=== PATIENT | female | born 1975 | race Caucasian/White ===

== ENCOUNTER 2017-10-31 18:58 | Emergency (ER) | payer MEDICAID ==
[~2017-10-31] VITALS: Ht 152.4 cm; Wt 98.9 kg
[~2017-10-31 18:58] MED LIST: ASPI-1063 PO; CARV25TA55 PO; CEL250 PO; CLOP75TA2 PO; INSU100V11 SQ; INSU10VI4 SUBCUT; LIP20 PO; LISI-209 PO; MYCO500T PO; PRED5TAB PO
[2017-10-31 19:11] VITALS: BP_SYST 151
--- NOTE | 2017-10-31 21:02 | NUR ---
Placed in room CH2. Side rails up. Report given to VIANEY Reyes.
--- NOTE | 2017-10-31 21:10 | NUR ---
Patient to ER via triage, ambulating with slow, steady gait in no acute distress. Patient c/o right ear pain, patient also reports a bump/abscess in the right ear. Patient reports symptoms have been ongoing since 10/28/17 at 0600. Patient able to ambulate to Hallway bed, to await MD evaluation-will continue to observe and assess.
--- NOTE | 2017-10-31 21:20 | NUR ---
ER at bedside examining patient.
--- NOTE | 2017-10-31 21:45 | NUR ---
Patient given written and verbal discharge instructions and verbalizes understanding. ER MD discussed with patient the results and treatment provided. Patient in stable condition. ID arm band removed. Rx of Ciprofloxacin, Amoxicillin given. Patient educated on pain management and to follow up with PMD. Pain Scale 2. Opportunity for questions provided and answered. Patient left ER ambulating with slow, steady gait in no acute distress. Patient was given aftercare instructions by Hior Marques RN
== END 2017-10-31 21:45 | disposition home or self-care (01) ==
LOC: SED 18:58
DX: H60.91 Unspecified otitis externa, right ear (principal); I10 Essential (primary) hypertension; Z79.899 Other long term (current) drug therapy
CPT/HCPCS: 99283

== ENCOUNTER 2018-11-23 04:33 | Emergency (ER) | payer MEDICAID ==
[~2018-11-23] VITALS: Ht 152.4 cm; Wt 93.0 kg
[~2018-11-23 04:33] MED LIST changes: -ASPI-1063 PO; +ASPI-1153 PO
[2018-11-23 04:45] VITALS: BP_SYST 149
[2018-11-23] MEDS ORDERED: LIDOCAINE VISCOUS 2%, 15 ML UDC MM ONE (05:15)
[2018-11-23] MEDS ORDERED: AMOXICILLIN 500 MG CAPSULE PO ONE (05:15)
[2018-11-23] MEDS ORDERED: LIDOCAINE VISCOUS 2%, 15 ML UDC ONE ×2 (05:31→05:35)
[2018-11-23 05:34] VITALS: BP_SYST 149
== END 2018-11-23 05:34 | disposition home or self-care (01) ==
LOC: SED 04:33
DX: J02.8 Acute pharyngitis due to other specified organisms (principal); B96.89 Other specified bacterial agents as the cause of diseases classified elsewhere; I10 Essential (primary) hypertension; Z79.82 Long term (current) use of aspirin; Z79.899 Other long term (current) drug therapy
CPT/HCPCS: 99283; J2001

== ENCOUNTER 2019-12-06 01:30 | Emergency (ER) | payer MEDICAID ==
[~2019-12-06] VITALS: Ht 152.4 cm; Wt 99.3 kg
[2019-12-06 02:20] VITALS: BP_SYST 149
--- NOTE | 2019-12-06 04:57 | NUR ---
Pt ambulatory to bed 7 for evaluation
--- NOTE | 2019-12-06 05:00 | NUR ---
Dr. Hameed bedside for Pt eval
--- NOTE | 2019-12-06 05:15 | NUR ---
Pt BIB family to ED C/O left back pain x 2 days. Denies injury/trauma.No pain meds taken. No other complaints and or injuries noted VSS no s/s of acute distress Resting on gurney rails up
[2019-12-06] MEDS ORDERED: KETOROLAC TROMETHAMINE 30 MG VIAL IM ONE (05:30)
--- NOTE | 2019-12-06 05:47 | NUR ---
Pt taken to Radiology in stable condition
[2019-12-06 06:50] LABS: BILIRUBIN,URINE NEGATIVE (NEGATIVE); CLARITY/URINE CLEAR (CLEAR); COLOR,URINE YELLOW (YELLOW); GLUCOSE,URINE NEGATIVE (NEGATIVE); KETONES,URINE NEGATIVE (NEGATIVE); LEUKOCYTE ESTERASE ,URINE NEGATIVE (NEGATIVE); NITRITE, URINE NEGATIVE (NEGATIVE); PH,URINE 5.5 (5.0-8.0); PROTEIN URINE NEGATIVE (NEGATIVE); UROBILINOGEN,URINE 0.2 (0.2-1.0)
[2019-12-06 06:55] LABS: HCG,QUAL RESULT NEGATIVE (NEGATIVE)
[2019-12-06 06:56] LABS: BLOOD, URINE TRACE (NEGATIVE)
[2019-12-06 06:59] LABS: BACTERIA,URINE FEW /HPF (None Seen); RBC,URINE 0-3 /HPF (0-3); WBC,URINE 0-3 /HPF (0-3)
[2019-12-06 07:00] LABS: MUCUS,URINE 1+ /LPF (None Seen)
[2019-12-06 07:33] LABS: BASOPHILS # (AUTO) 0.1 K/uL (0.0-0.2); BASOPHILS % (AUTO) 0.7 % (0.0-2.0); EOSINOPHILS # (AUTO) 0.4 K/uL (0.0-0.4); EOSINOPHILS % (AUTO) 5.2 % (0.0-4.0); HEMATOCRIT 42.4 % (36-48); HEMOGLOBIN 14.5 g/dL (12.0-16.0); LYMPHOCYTES # (AUTO) 2.3 K/uL (1.0-5.5); LYMPHOCYTES % (AUTO) 28.7 % (20.5-51.5); MEAN CORPUSCULAR HEMOGLOBIN 32 pg (27-31); MEAN CORPUSCULAR HGB CONC 34 % (32-36); MEAN CORPUSCULAR VOLUME 95 fL (79.0-98.0); MONOCYTES # (AUTO) 0.7 K/uL (0.0-1.0); MONOCYTES % (AUTO) 8.8 % (1.7-9.3); NEUTROPHILS # (AUTO) 4.5 K/uL (1.8-7.7); NEUTROPHILS % (AUTO) 56.6 % (40.0-70.0); PLATELET COUNT (AUTO) 245 K/uL (130-430); RED BLOOD CELL COUNT(AUTO) 4.48 MIL/uL (4.2-6.2); RED CELL DISTRIBUTION WIDTH 13.1 % (9.0-15.0); WHITE BLOOD COUNT (AUTO) 7.9 K/uL (4.8-10.8)
[2019-12-06 07:52] LABS: CALCIUM 8.6 mg/dL (8.4-11.0); CREATININE 0.88 mg/dL (0.55-1.30); POTASSIUM 3.6 mmol/L (3.5-5.1)
[2019-12-06 07:58] LABS: ALBUMIN 2.8 g/dL (3.4-4.8); TOTAL BILIRUBIN 0.2 mg/dL (0.0-1.0)
--- NOTE | 2019-12-06 08:27 | NUR ---
pt continues to rest comfortably and has been sleeping. Pt is stable . Awaiting further orders.
--- NOTE | 2019-12-06 08:33 | NUR ---
Patient given written and verbal discharge instructions and verbalizes understanding. ER MD discussed with patient the results and treatment provided. Patient in stable condition. ID arm band removed. Rx of doxycycline, and naprosyn given. Patient educated on pain management and to follow up with PMD. Pain Scale0/10 . Opportunity for questions provided and answered. Medication side effect fact sheet provided.
[2019-12-06 08:44] VITALS: BP_SYST 134
== END 2019-12-06 08:33 | disposition home or self-care (01) ==
LOC: SED 01:30
DX: N83.202 Unspecified ovarian cyst, left side (principal); N39.0 Urinary tract infection, site not specified; R10.9 Unspecified abdominal pain; I10 Essential (primary) hypertension; F17.200 Nicotine dependence, unspecified, uncomplicated; Z79.82 Long term (current) use of aspirin; Z79.899 Other long term (current) drug therapy
CPT/HCPCS: 36415; 74176; 80053; 81000; 83690; 84703; 85025; 96372; 99284; J1885